=== PATIENT | male | born 1950 | race Asian ===

== ENCOUNTER 2021-07-22 11:19 | Inpatient (IN) | payer MEDICARE, OTHER ==
[2021-07-22] VITALS (17 sets, daily range): BP systolic 101–172; BP diastolic 31–55
[~2021-07-22] VITALS: Ht 175.3 cm; Wt 84.5 kg
[~2021-07-22 11:19] MED LIST: AMLO-258 PO; ATOR20TA86 PO; CARV25 PO; ERGO500013 PO; FURO20 PO; GLIP5 PO; HYDR50TA36 PO; INSLAN SQ; LEVO137T24 PO; LISI40TA9 PO; LORA-1000 PO; POTA8CAP20 PO; SERT25TA PO; SITA1TAB6 PO; TELM40 PO
[2021-07-22] MEDS ORDERED: SODIUM CHLORIDE 0.9% 1,000 ML IV ONE (12:15)
[2021-07-22 12:26] LABS: GLUCOSE,POINT OF CARE 179 MG/DL (70-110)
[2021-07-22 12:41] LABS: MONOCYTES # (AUTO) 0.6 K/uL (0.1-1.0); NEUTROPHILS # (AUTO) 7.6 K/uL (1.8-7.7)
[2021-07-22 12:45] LABS: BASOPHILS % (AUTO) 0.4 % (0.0-2.0); EOSINOPHILS % (AUTO) 1.4 % (1.0-6.0); LYMPHOCYTES # (AUTO) 1.1 K/uL (1.0-4.8); LYMPHOCYTES % (AUTO) 11.6 % (22.0-44.0); MEAN CORPUSCULAR HEMOGLOBIN 30.9 pg (26.0-34.0); MEAN CORPUSCULAR HGB CONC 35.1 G/dL (31.0-37.0); MEAN CORPUSCULAR VOLUME 88 fL (80-100); MONOCYTES % (AUTO) 6.4 % (2.0-9.0); NEUTROPHILS % (AUTO) 80.2 % (40.0-70.0); PLATELET COUNT (AUTO) 196 K/uL (150-450); RED BLOOD CELL COUNT(AUTO) 1.36 MIL/uL (4.50-5.90); RED CELL DISTRIBUTION WIDTH 15.8 % (11.5-14.5)
[2021-07-22 13:01] LABS: COVID AG,FIA SOURCE NASOPHARYNGEAL
[2021-07-22 13:02] LABS: CREATININE 6.38 mg/dL (0.60-1.30); POTASSIUM 5.5 mmol/L (3.5-5.1)
[2021-07-22 13:05] LABS: HEMOGLOBIN 4.2 g/dL (13.5-17.5)
[2021-07-22 13:06] LABS: HEMATOCRIT 11.9 % (41-53)
[2021-07-22] MEDS ORDERED: PANTOPRAZOLE SODIUM 40 MG/VIAL IVP ONE (13:15)
[2021-07-22 13:22] LABS: PROTHROMBIN TIME 11.1 SEC (9.4-11.6)
[2021-07-22 13:28] LABS: ALBUMIN 2.7 g/dL (3.4-5.0); BILIRUBIN,TOTAL 0.2 mg/dL (0.1-1.0); MAGNESIUM 2.3 mg/dL (1.80-2.40); THYROID STIMULATING HORMONE 1.25 uIU/mL (0.36-3.74); TOTAL PROTEIN, SERUM 5.9 g/dL (6.4-8.2)
[2021-07-22] MEDS: PANTOPRAZOLE SODIUM 80 MG in SODIUM CHLORIDE 0.9% 100 ML IV SCH ×3 (13:35→23:15)
[2021-07-22] MEDS ORDERED: DEXTROSE 50%-WATER 25 GM/50 ML SYRINGE IVP PRN (14:00)
[2021-07-22] MEDS ORDERED: ONDANSETRON HCL 4 MG/2 ML VIAL IVP PRN (14:00)
[2021-07-22] MEDS ORDERED: BISACODYL 10 MG RECTAL RECTAL SUPPOSITORY PR PRN (14:00)
[2021-07-22] MEDS ORDERED: ACETAMINOPHEN 325 MG TABLET PO PRN (14:00)
[2021-07-22] MEDS ORDERED: FUROSEMIDE 20 MG/2 ML VIAL IVP ONE (14:00)
[2021-07-22 14:22] LABS: % IRON SATURATION 10.3 % (30-44)
[2021-07-22] MEDS ORDERED: SODIUM CHLORIDE 0.9% 500 ML IV ONE (19:57)
[2021-07-22] MEDS: DEXTROSE 5%-0.45% SODIUM CHL 1,000 ML IV PRN (22:17)
[2021-07-22 23:06] LABS: HEMATOCRIT 24.2 % (41-53); HEMOGLOBIN 8.1 g/dL (13.5-17.5)
[2021-07-22] MEDS ORDERED: PANTOPRAZOLE SODIUM 80 MG in SODIUM CHLORIDE 0.9% 100 ML IV SCH (23:30)
[2021-07-23] VITALS: BP 157/45
[2021-07-23 04:00] VITALS: BP 168/45
[2021-07-23 05:10] LABS: BASOPHILS % (AUTO) 0.3 % (0.0-2.0); HEMOGLOBIN 7.8 g/dL (13.5-17.5); LYMPHOCYTES # (AUTO) 1.3 K/uL (1.0-4.8); LYMPHOCYTES % (AUTO) 12.1 % (22.0-44.0); MEAN CORPUSCULAR HEMOGLOBIN 30.4 pg (26.0-34.0); MEAN CORPUSCULAR HGB CONC 35.4 G/dL (31.0-37.0); MEAN CORPUSCULAR VOLUME 86 fL (80-100); MONOCYTES # (AUTO) 0.9 K/uL (0.1-1.0); MONOCYTES % (AUTO) 8.1 % (2.0-9.0); NEUTROPHILS # (AUTO) 8.6 K/uL (1.8-7.7); NEUTROPHILS % (AUTO) 77.5 % (40.0-70.0); PLATELET COUNT (AUTO) 174 K/uL (150-450); RED BLOOD CELL COUNT(AUTO) 2.56 MIL/uL (4.50-5.90); RED CELL DISTRIBUTION WIDTH 16.3 % (11.5-14.5)
[2021-07-23 05:20] LABS: CREATININE 6.23 mg/dL (0.60-1.30); POTASSIUM 5.2 mmol/L (3.5-5.1)
[2021-07-23 08:00] VITALS: BP 164/47
[2021-07-23] MEDS ORDERED: FUROSEMIDE 20 MG/2 ML VIAL IVP SCH (09:00)
[2021-07-23 09:11] LABS: GLUCOMETER DEV NAME(LOC) AHU.; GLUCOSE,POINT OF CARE 110 MG/DL (70-110)
[2021-07-23] MEDS: PANTOPRAZOLE SODIUM 80 MG in SODIUM CHLORIDE 0.9% 100 ML IV SCH (10:24)
[2021-07-23 12:00] VITALS: BP 164/47
[2021-07-23] MEDS ORDERED: PROPOFOL 1% 20 ML VIAL IVP ONE (12:00)
[2021-07-23 12:46] LABS: GLUCOMETER DEV NAME(LOC) AHU.; GLUCOSE,POINT OF CARE 100 MG/DL (70-110)
[2021-07-23 13:41] LABS: GLUCOMETER DEV NAME(LOC) AHU.; GLUCOSE,POINT OF CARE 107 MG/DL (70-110)
[2021-07-23] MEDS ORDERED: EPOETIN ALFA 10,000 UNITS/ML VIAL SQ ONE (15:30)
[2021-07-23 16:00] VITALS: BP 136/37
[2021-07-23] MEDS: DEXTROSE 5%-0.45% SODIUM CHL 1,000 ML IV PRN (16:53)
[2021-07-23 18:46] LABS: GLUCOMETER DEV NAME(LOC) AHU.; GLUCOSE,POINT OF CARE 176 MG/DL (70-110)
[2021-07-23] MEDS ORDERED: PANTOPRAZOLE SODIUM 40 MG/VIAL IVP SCH (21:00)
[2021-07-23] MEDS ORDERED: PANTOPRAZOLE SODIUM 40 MG DR TABLET PO SCH (21:00)
[2021-07-23] MEDS: PANTOPRAZOLE SODIUM 40 MG DR TABLET PO SCH (21:23)
[2021-07-23] MEDS: INSULIN LISPRO 100 UNITS/ML SQ PRN (21:43)
[2021-07-23 21:51] LABS: GLUCOSE,POINT OF CARE 101 MG/DL (70-110)
[2021-07-23 21:51] LABS: GLUCOSE,POINT OF CARE 132 MG/DL (70-110)
[2021-07-23 21:51] LABS: GLUCOSE,POINT OF CARE 150 MG/DL (70-110)
[2021-07-23 22:15] VITALS: BP 167/73
[2021-07-23 22:46] LABS: GLUCOMETER DEV NAME(LOC) AHU.; GLUCOSE,POINT OF CARE 159 MG/DL (70-110)
[2021-07-24] VITALS (7 sets, daily range): BP systolic 123–159; BP diastolic 54–73
[2021-07-24 02:29] LABS: APPEARANCE,URINE CLEAR (CLEAR); BILIRUBIN,URINE NEGATIVE (NEGATIVE); GLUCOSE, URINE (UA) NEGATIVE (NEGATIVE); KETONES,URINE NEGATIVE (NEGATIVE); LEUKOCYTE ESTERASE ,URINE NEGATIVE (NEGATIVE); NITRATE,URINE NEGATIVE (NEGATIVE); OCCULT BLOOD,URINE TRACE (NEGATIVE); PROTEIN,URINE SEE CONFIRM (NEGATIVE); UROBILINOGEN,URINE 0.2 mg/dL (<=1.0)
[2021-07-24 02:41] LABS: BACTERIA,URINE None Seen /HPF (None Seen); RBC,URINE 0-2 /HPF (0-2); SULFOSALICYLIC ACID,URINE 1+ (Negative); WBC,URINE None Seen /HPF (0-5)
[2021-07-24] MEDS: INSULIN LISPRO 100 UNITS/ML SQ PRN ×3 (05:47→21:07)
[2021-07-24 06:06] LABS: H. PYLORI ANTIBODY IGG 4.87 (0.00-0.79)
[2021-07-24 06:41] LABS: GLUCOMETER DEV NAME(LOC) 5N.3; GLUCOSE,POINT OF CARE 146 MG/DL (70-110)
[2021-07-24 06:41] LABS: GLUCOMETER DEV NAME(LOC) 5N.3; GLUCOSE,POINT OF CARE 71 MG/DL (70-110)
[2021-07-24 08:07] LABS: CALCIUM, TOTAL 7.3 mg/dL (8.8-10.5); CREATININE 5.8 mg/dL (0.60-1.30); MAGNESIUM 2.2 mg/dL (1.80-2.40); PHOSPHORUS 6.2 mg/dL (2.5-4.9); POTASSIUM 4.2 mmol/L (3.5-5.1)
[2021-07-24] MEDS: FUROSEMIDE 20 MG/2 ML VIAL IVP SCH (09:29)
[2021-07-24] MEDS: PANTOPRAZOLE SODIUM 40 MG DR TABLET PO SCH ×2 (09:29→21:06)
[2021-07-24] MEDS ORDERED: CALCIUM GLUCONATE 1,000 MG in DEXTROSE 5%-WATER 50 ML IV ONE (10:30)
[2021-07-24] MEDS: CALCITRIOL 0.25 MCG CAPSULE PO SCH (11:36)
[2021-07-24] MEDS: CHOLECALCIFEROL (VIT D3) 2,000 UNITS [50 MCG] TABLET PO SCH (11:36)
[2021-07-24] MEDS: SODIUM BICARBONATE 650 MG TABLET PO SCH ×2 (11:36→21:31)
[2021-07-24] MEDS ORDERED: SODIUM CHLORIDE 0.9% 250 ML IV ONE (11:44)
[2021-07-24 13:17] LABS: PATHOLOGY REVIEW, DIFF YES
[2021-07-24 17:06] LABS: GLUCOMETER DEV NAME(LOC) 5S.2B; GLUCOSE,POINT OF CARE 118 MG/DL (70-110)
[2021-07-24 19:31] LABS: GLUCOMETER DEV NAME(LOC) 5N.3; GLUCOSE,POINT OF CARE 141 MG/DL (70-110)
[2021-07-25 04:35] VITALS: BP 134/66
[2021-07-25 05:21] LABS: GLUCOMETER DEV NAME(LOC) 5S.1B; GLUCOSE,POINT OF CARE 160 MG/DL (70-110)
[2021-07-25 06:26] LABS: GLUCOMETER DEV NAME(LOC) 5N.3; GLUCOSE,POINT OF CARE 117 MG/DL (70-110)
[2021-07-25] MEDS: SODIUM BICARBONATE 650 MG TABLET PO SCH (08:23)
[2021-07-25] MEDS: CHOLECALCIFEROL (VIT D3) 2,000 UNITS [50 MCG] TABLET PO SCH (08:23)
[2021-07-25] MEDS: CALCITRIOL 0.25 MCG CAPSULE PO SCH (08:23)
[2021-07-25] MEDS: PANTOPRAZOLE SODIUM 40 MG DR TABLET PO SCH (08:23)
[2021-07-25] MEDS: FUROSEMIDE 20 MG/2 ML VIAL IVP SCH (08:23)
[2021-07-25 08:30] LABS: BASOPHILS % (AUTO) 0.5 % (0.0-2.0); EOSINOPHILS % (AUTO) 4.4 % (1.0-6.0); HEMATOCRIT 27.8 % (41-53); HEMOGLOBIN 9.3 g/dL (13.5-17.5); LYMPHOCYTES # (AUTO) 1.5 K/uL (1.0-4.8); MEAN CORPUSCULAR HEMOGLOBIN 29.5 pg (26.0-34.0); MEAN CORPUSCULAR HGB CONC 33.5 G/dL (31.0-37.0); MEAN CORPUSCULAR VOLUME 88 fL (80-100); MONOCYTES % (AUTO) 8.9 % (2.0-9.0); NEUTROPHILS # (AUTO) 8.2 K/uL (1.8-7.7); NEUTROPHILS % (AUTO) 73.2 % (40.0-70.0); PLATELET COUNT (AUTO) 210 K/uL (150-450); RED BLOOD CELL COUNT(AUTO) 3.16 MIL/uL (4.50-5.90); RED CELL DISTRIBUTION WIDTH 16.6 % (11.5-14.5)
[2021-07-25 08:43] LABS: POTASSIUM 3.9 mmol/L (3.5-5.1)
[2021-07-25 08:44] LABS: CALCIUM, TOTAL 7.8 mg/dL (8.8-10.5); CREATININE 5.33 mg/dL (0.60-1.30); MAGNESIUM 2.1 mg/dL (1.80-2.40); PHOSPHORUS 4.9 mg/dL (2.5-4.9)
[2021-07-25 08:48] VITALS: BP 136/69
[2021-07-25] MEDS ORDERED: EPOETIN ALFA 10,000 UNITS/ML VIAL SQ SCH (09:00)
[2021-07-25 11:46] LABS: GLUCOMETER DEV NAME(LOC) 5N.3; GLUCOSE,POINT OF CARE 250 MG/DL (70-110)
[2021-07-25 11:52] VITALS: BP 152/63
[2021-07-25] MEDS: INSULIN LISPRO 100 UNITS/ML SQ PRN (11:52)
[2021-07-27 12:06] LABS: H. PYLORI ANTIBODY IGM <9.0 units (0.0-8.9)
[2021-07-27 16:07] LABS: H. PYLORI ANTIBODY IGA >35.0 units (0.0-8.9)
== END 2021-07-25 14:40 | disposition home or self-care (01) | DRG 378 ==
LOC: EMS 11:19 → ICUN 14:22 → 5S 07-23 22:05
PROVIDERS: ADMIT Internal Medicine; ATTEND Internal Medicine
PROC: 30233N1 Transfusion of Nonautologous Red Blood Cells into Peripheral Vein, Percutaneous Approach (ICD-10-PCS; 2021-07-22)
PROC: 0DB68ZX Excision of Stomach, Via Natural or Artificial Opening Endoscopic, Diagnostic (ICD-10-PCS; principal; 2021-07-23 15:00)
DX: K26.4 Chronic or unspecified duodenal ulcer with hemorrhage (principal); N17.9 Acute kidney failure, unspecified; D62 Acute posthemorrhagic anemia; E87.2 Acidosis; N25.81 Secondary hyperparathyroidism of renal origin; N18.4 Chronic kidney disease, stage 4 (severe); E03.9 Hypothyroidism, unspecified; E78.5 Hyperlipidemia, unspecified; D63.1 Anemia in chronic kidney disease; E11.22 Type 2 diabetes mellitus with diabetic chronic kidney disease; Z20.822 Contact with and (suspected) exposure to COVID-19; E11.319 Type 2 diabetes mellitus with unspecified diabetic retinopathy without macular edema; E87.5 Hyperkalemia; E11.21 Type 2 diabetes mellitus with diabetic nephropathy; E78.00 Pure hypercholesterolemia, unspecified; I12.9 Hypertensive chronic kidney disease with stage 1 through stage 4 chronic kidney disease, or unspecified chronic kidney disease; Z82.49 Family history of ischemic heart disease and other diseases of the circulatory system; Z83.3 Family history of diabetes mellitus
CPT/HCPCS: 71045; 80048; 80053; 81001; 81002; 82271; 82550; 82962; 83540; 83550; 83605; 83735; 83880; 84100; 84443; 84484; 85014; 85018; 85025; 85610; 85730; 86677; 86850; 86900; 86901; 86923; 87081; 88305; 93005; 93306; 93970; 99291; C9113; G0378; J0610; J0885; J1940; J2704; J7040; J7050; J7060; P9016; 36415-L1; 36415-TC

== ENCOUNTER 2021-11-08 01:04 | Inpatient (IN) | payer MEDICARE, OTHER ==
[~2021-11-08] VITALS: Ht 170.2 cm; Wt 80.1 kg
[~2021-11-08 01:04] MED LIST changes: -AMLO-258 PO; -CARV25 PO; -GLIP5 PO; -HYDR50TA36 PO; -INSLAN SQ; -LISI40TA9 PO; -LORA-1000 PO; -POTA8CAP20 PO; -SERT25TA PO; -SITA1TAB6 PO; -TELM40 PO
[2021-11-08 02:00] LABS: BASOPHILS % (AUTO) 0.2 % (0.0-2.0); EOSINOPHILS % (AUTO) 7.6 % (1.0-6.0); HEMATOCRIT 22.4 % (41-53); HEMOGLOBIN 7.4 g/dL (13.5-17.5); LYMPHOCYTES # (AUTO) 0.9 K/uL (1.0-4.8); LYMPHOCYTES % (AUTO) 9.7 % (22.0-44.0); MEAN CORPUSCULAR HEMOGLOBIN 28.5 pg (26.0-34.0); MEAN CORPUSCULAR VOLUME 86 fL (80-100); MONOCYTES # (AUTO) 0.6 K/uL (0.1-1.0); MONOCYTES % (AUTO) 6.4 % (2.0-9.0); NEUTROPHILS # (AUTO) 7.4 K/uL (1.8-7.7); NEUTROPHILS % (AUTO) 76.1 % (40.0-70.0); PLATELET COUNT (AUTO) 206 K/uL (150-450); RED BLOOD CELL COUNT(AUTO) 2.59 MIL/uL (4.50-5.90); RED CELL DISTRIBUTION WIDTH 15.4 % (11.5-14.5)
[2021-11-08 02:08] LABS: ANION GAP 18 mmol/L (8-16); CARBON DIOXIDE 20 mmol/L (22-29); CHLORIDE 99 mmol/L (98-107); GLOMERULAR FILTR. RATE CALC 3 mL/min (>60); GLUCOSE,RANDOM 175 mg/dL (70-110); POTASSIUM 3.6 mmol/L (3.5-5.1); SODIUM SERUM 137 mmol/L (136-145)
[2021-11-08 02:14] LABS: ALANINE AMINOTRANSFERASE 18 U/L (12-78); ALBUMIN 2.6 g/dL (3.4-5.0); ALKALINE PHOSPHATASE 84 U/L (46-116); ASPARTATE AMINOTRANSFERASE 23 U/L (15-37); BILIRUBIN,TOTAL 0.3 mg/dL (0.1-1.0); CREATINE KINASE, TOTAL ONLY 832 U/L (39-308); TOTAL PROTEIN, SERUM 6.9 g/dL (6.4-8.2)
[2021-11-08 02:16] LABS: INR 1.1 (0.9-1.1); PROTHROMBIN TIME 11.4 SEC (9.4-11.6)
[2021-11-08 02:17] LABS: B-TYPE NATRIURETIC PEPTIDE 3010 pg/mL (0-100)
[2021-11-08 02:18] LABS: D-DIMER 6.22 mg/L FEU (0.00-0.50)
[2021-11-08 02:23] LABS: CALCIUM, TOTAL < 5.0 mg/dL (8.8-10.5); UREA NITROGEN, BLOOD 109 mg/dL (7-18)
[2021-11-08] MEDS ORDERED: FUROSEMIDE 40 MG/4 ML VIAL IVP ONE ×2 (02:30→11:15)
[2021-11-08] MEDS ORDERED: HydrALAZINE HCL 20 MG/ML VIAL IVP ONE (06:30)
[2021-11-08 07:56] LABS: GLUCOMETER DEV NAME(LOC) ERT.5; GLUCOSE,POINT OF CARE 121 MG/DL (70-110)
[2021-11-08 10:09] LABS: COVID AG,FIA SOURCE NASAL SWAB
[2021-11-08] MEDS ORDERED: ALBUTEROL SULFATE 2.5 MG/0.5 ML NEB SOLUTION NEB PRN (11:15)
[2021-11-08 11:25] VITALS: BP 199/111
[2021-11-08 12:58] VITALS: BP 180/89
[2021-11-08 14:36] LABS: GLUCOMETER DEV NAME(LOC) 5S.2B; GLUCOSE,POINT OF CARE 134 MG/DL (70-110)
[2021-11-08 15:38] VITALS: BP 148/83
[2021-11-08 18:56] LABS: GLUCOMETER DEV NAME(LOC) 5S.2B; GLUCOSE,POINT OF CARE 162 MG/DL (70-110)
[2021-11-08 20:02] VITALS: BP 156/75
[2021-11-08] MEDS ORDERED: DEXTROSE 50%-WATER 25 GM/50 ML SYRINGE IVP PRN (20:45)
[2021-11-08] MEDS: INSULIN LISPRO 100 UNITS/ML SQ PRN (20:48)
[2021-11-08] MEDS ORDERED: INSULIN GLARGINE,HUM.REC.ANLOG 100 UNITS/ML SQ SCH (21:00)
[2021-11-08 21:06] LABS: GLUCOMETER DEV NAME(LOC) 5N.3; GLUCOSE,POINT OF CARE 185 MG/DL (70-110)
[2021-11-09] VITALS (7 sets, daily range): BP systolic 135–191; BP diastolic 62–103
[2021-11-09] MEDS ORDERED: ONDANSETRON HCL 4 MG/2 ML VIAL IVP PRN (01:00)
[2021-11-09] MEDS ORDERED: ZOLPIDEM TARTRATE 5 MG TABLET PO PRN (01:00)
[2021-11-09] MEDS ORDERED: MORPHINE SULFATE 2 MG/ML SYRINGE IVP PRN (01:00)
[2021-11-09] MEDS ORDERED: HYDROCODONE/ACETAMINOPHEN 5-325 MG TABLET PO PRN (01:00)
[2021-11-09] MEDS ORDERED: ACETAMINOPHEN 325 MG TABLET PO PRN (01:00)
[2021-11-09] MEDS ORDERED: ALBUTEROL SULFATE 2.5 MG/0.5 ML NEB SOLUTION NEB PRN (01:00)
[2021-11-09] MEDS ORDERED: MAGNESIUM HYDROXIDE SUSPENSION 30 ML UDCUP PO PRN (01:00)
[2021-11-09] MEDS ORDERED: IPRATROPIUM BROMIDE 0.5 MG/2.5 ML NEB SOLUTION NEB PRN (01:00)
[2021-11-09] MEDS ORDERED: BISACODYL 10 MG RECTAL RECTAL SUPPOSITORY PR PRN (01:00)
[2021-11-09] MEDS: DOCUSATE SODIUM 100 MG CAPSULE PO SCH ×2 (09:00→20:49)
[2021-11-09 09:30] LABS: BASOPHILS % (AUTO) 0.2 % (0.0-2.0); HEMATOCRIT 24.2 % (41-53); HEMOGLOBIN 8.1 g/dL (13.5-17.5); LYMPHOCYTES # (AUTO) 0.8 K/uL (1.0-4.8); LYMPHOCYTES % (AUTO) 8.5 % (22.0-44.0); MEAN CORPUSCULAR HEMOGLOBIN 28.9 pg (26.0-34.0); MEAN CORPUSCULAR HGB CONC 33.2 G/dL (31.0-37.0); MEAN CORPUSCULAR VOLUME 87 fL (80-100); MONOCYTES # (AUTO) 0.6 K/uL (0.1-1.0); MONOCYTES % (AUTO) 6.2 % (2.0-9.0); NEUTROPHILS # (AUTO) 7.3 K/uL (1.8-7.7); NEUTROPHILS % (AUTO) 77.1 % (40.0-70.0); PLATELET COUNT (AUTO) 200 K/uL (150-450); RED BLOOD CELL COUNT(AUTO) 2.79 MIL/uL (4.50-5.90); RED CELL DISTRIBUTION WIDTH 15.5 % (11.5-14.5)
[2021-11-09 09:36] LABS: ANION GAP 18 mmol/L (8-16); CARBON DIOXIDE 21 mmol/L (22-29); CHLORIDE 100 mmol/L (98-107); GLOMERULAR FILTR. RATE CALC 3 mL/min (>60); GLUCOSE,RANDOM 163 mg/dL (70-110); POTASSIUM 3.8 mmol/L (3.5-5.1); SODIUM SERUM 139 mmol/L (136-145)
[2021-11-09] MEDS: PANTOPRAZOLE SODIUM 40 MG/VIAL IVP SCH (09:39)
[2021-11-09] MEDS: HEPARIN SODIUM,PORCINE 5,000 UNITS/ML VIAL SQ SCH ×3 (09:39→23:57)
[2021-11-09] MEDS: FUROSEMIDE 40 MG/4 ML VIAL IVP SCH ×2 (09:39→20:49)
[2021-11-09 10:04] LABS: UREA NITROGEN, BLOOD 105 mg/dL (7-18)
[2021-11-09 10:05] LABS: CALCIUM, TOTAL < 5.0 mg/dL (8.8-10.5)
[2021-11-09 12:11] LABS: GLUCOMETER DEV NAME(LOC) 5N.1C; GLUCOSE,POINT OF CARE 71 MG/DL (70-110)
[2021-11-09 12:11] LABS: GLUCOMETER DEV NAME(LOC) 5N.1C; GLUCOSE,POINT OF CARE 124 MG/DL (70-110)
[2021-11-09] MEDS ORDERED: EPOETIN ALFA 10,000 UNITS/ML VIAL SQ ONE (18:15)
[2021-11-09] MEDS: CALCITRIOL 1 MCG/ML AMP IVP SCH (18:34)
[2021-11-09] MEDS: CALCIUM GLUCONATE 100 MG/ML 10 ML IVP SCH ×3 (18:34→22:02)
[2021-11-09 20:11] LABS: GLUCOMETER DEV NAME(LOC) 5S.1B; GLUCOSE,POINT OF CARE 90 MG/DL (70-110)
[2021-11-09] MEDS: AmLODIPine BESYLATE 10 MG TABLET PO SCH (20:48)
[2021-11-09] MEDS: CloNIDine HCL 0.1 MG TABLET PO PRN (20:49)
[2021-11-09] MEDS: INSULIN GLARGINE,HUM.REC.ANLOG 100 UNITS/ML SQ SCH (20:50)
[2021-11-09] MEDS: INSULIN LISPRO 100 UNITS/ML SQ PRN (20:51)
[2021-11-09 21:02] LABS: GLUCOMETER DEV NAME(LOC) 5N.1C; GLUCOSE,POINT OF CARE 148 MG/DL (70-110)
[2021-11-09] MEDS ORDERED: CloNIDine HCL 0.1 MG TABLET PO ONE (22:30)
[2021-11-10] VITALS (7 sets, daily range): BP systolic 122–164; BP diastolic 62–81
[2021-11-10 07:41] LABS: CREATININE 14.07 mg/dL (0.60-1.30); POTASSIUM 3.9 mmol/L (3.5-5.1)
[2021-11-10 07:43] LABS: CALCIUM, TOTAL 5.7 mg/dL (8.8-10.5)
[2021-11-10 08:00] LABS: PHOSPHORUS 9.8 mg/dL (2.5-4.9)
[2021-11-10] MEDS: AmLODIPine BESYLATE 10 MG TABLET PO SCH (08:37)
[2021-11-10] MEDS: FUROSEMIDE 40 MG/4 ML VIAL IVP SCH ×2 (08:37→20:29)
[2021-11-10] MEDS: DOCUSATE SODIUM 100 MG CAPSULE PO SCH ×2 (08:38→20:30)
[2021-11-10] MEDS: HEPARIN SODIUM,PORCINE 5,000 UNITS/ML VIAL SQ SCH ×2 (08:38→15:46)
[2021-11-10] MEDS: CALCITRIOL 1 MCG/ML AMP IVP SCH (08:38)
[2021-11-10] MEDS: PANTOPRAZOLE SODIUM 40 MG/VIAL IVP SCH (10:18)
[2021-11-10] MEDS: CALCIUM GLUCONATE 1,000 MG in DEXTROSE 5%-WATER 50 ML IV SCH ×3 (10:56→13:00)
[2021-11-10] MEDS: CALCIUM ACETATE 667 MG CAPSULE PO SCH ×2 (11:43→17:20)
[2021-11-10] MEDS: CALCIUM CARBONATE 500 MG CHEWABLE TABLET CHEW SCH ×3 (11:43→20:30)
[2021-11-10] MEDS: INSULIN LISPRO 100 UNITS/ML SQ PRN (18:01)
[2021-11-10] MEDS: INSULIN GLARGINE,HUM.REC.ANLOG 100 UNITS/ML SQ SCH (20:29)
[2021-11-10 21:42] LABS: GLUCOMETER DEV NAME(LOC) 5S.2B; GLUCOSE,POINT OF CARE 120 MG/DL (70-110)
[2021-11-10 21:42] LABS: GLUCOMETER DEV NAME(LOC) 5S.2B; GLUCOSE,POINT OF CARE 80 MG/DL (70-110)
[2021-11-10 21:42] LABS: GLUCOMETER DEV NAME(LOC) 5S.2B; GLUCOSE,POINT OF CARE 194 MG/DL (70-110)
[2021-11-11] VITALS (8 sets, daily range): BP systolic 133–172; BP diastolic 71–99
[2021-11-11 00:07] LABS: GLUCOMETER DEV NAME(LOC) 5N.1C; GLUCOSE,POINT OF CARE 160 MG/DL (70-110)
[2021-11-11] MEDS: HEPARIN SODIUM,PORCINE 5,000 UNITS/ML VIAL SQ SCH ×4 (00:10→23:50)
[2021-11-11] MEDS: CALCIUM CARBONATE 500 MG CHEWABLE TABLET CHEW SCH ×4 (06:30→20:48)
[2021-11-11 07:06] LABS: GLUCOMETER DEV NAME(LOC) 5N.1C; GLUCOSE,POINT OF CARE 99 MG/DL (70-110)
[2021-11-11] MEDS: CALCIUM ACETATE 667 MG CAPSULE PO SCH ×3 (08:00→18:20)
[2021-11-11] MEDS: FUROSEMIDE 40 MG/4 ML VIAL IVP SCH ×2 (09:00→20:49)
[2021-11-11] MEDS: DOCUSATE SODIUM 100 MG CAPSULE PO SCH ×3 (09:00→21:00)
[2021-11-11] MEDS: CALCITRIOL 1 MCG/ML AMP IVP SCH (09:00)
[2021-11-11] MEDS: AmLODIPine BESYLATE 10 MG TABLET PO SCH (09:00)
[2021-11-11] MEDS: EPOETIN ALFA 10,000 UNITS/ML 2 ML VIAL SQ SCH (09:00)
[2021-11-11] MEDS: PANTOPRAZOLE SODIUM 40 MG/VIAL IVP SCH (09:00)
[2021-11-11] MEDS ORDERED: HEPARIN SODIUM 1000 UNITS/NS 0 ML ONE (09:25)
[2021-11-11] MEDS ORDERED: FentaNYL CITRATE PF 100 MCG/2 ML VIAL ONE (09:25)
[2021-11-11] MEDS ORDERED: LIDOCAINE/PF 1% 30 ML VIAL ONE (09:26)
[2021-11-11] MEDS ORDERED: MIDAZOLAM HCL 2 MG/2 ML VIAL ONE (09:26)
[2021-11-11] MEDS ORDERED: SODIUM BICARBONATE 50 MEQ/50 ML VIAL ONE (09:26)
[2021-11-11] MEDS ORDERED: HEPARIN SODIUM,PORCINE 1,000 UNITS/ML 10 ML VIAL ONE (09:28)
[2021-11-11] MEDS ORDERED: SODIUM CHLORIDE 0.9% 500 ML IV ONE (09:45)
[2021-11-11] MEDS ORDERED: LIDOCAINE 1% 30 ML/SOD BICARB 8.4% 4 ML SQ ONE (09:45)
[2021-11-11] MEDS ORDERED: CeFAZolin 1 GM/DEXTROSE 50 ML IV ONE (09:45)
[2021-11-11] MEDS ORDERED: MIDAZOLAM HCL 2 MG/2 ML VIAL IVP ONE (09:45)
[2021-11-11] MEDS ORDERED: FentaNYL CITRATE PF 100 MCG/2 ML VIAL IVP ONE (09:45)
[2021-11-11] MEDS ORDERED: HEPARIN SODIUM,PORCINE 1,000 UNITS/ML VIAL IVP ONE (12:00)
[2021-11-11 13:31] LABS: GLUCOMETER DEV NAME(LOC) 5S.2B; GLUCOSE,POINT OF CARE 103 MG/DL (70-110)
[2021-11-11 20:36] LABS: GLUCOMETER DEV NAME(LOC) 5S.2B; GLUCOSE,POINT OF CARE 135 MG/DL (70-110)
[2021-11-11] MEDS: INSULIN LISPRO 100 UNITS/ML SQ PRN (20:53)
[2021-11-11] MEDS: INSULIN GLARGINE,HUM.REC.ANLOG 100 UNITS/ML SQ SCH (20:54)
[2021-11-12] VITALS (15 sets, daily range): BP systolic 128–179; BP diastolic 73–89
[2021-11-12 03:11] LABS: GLUCOMETER DEV NAME(LOC) 5N.1C; GLUCOSE,POINT OF CARE 200 MG/DL (70-110)
[2021-11-12 07:21] LABS: GLUCOMETER DEV NAME(LOC) 5N.1C; GLUCOSE,POINT OF CARE 99 MG/DL (70-110)
[2021-11-12] MEDS: CALCIUM CARBONATE 500 MG CHEWABLE TABLET CHEW SCH ×4 (07:23→21:32)
[2021-11-12] MEDS: VITAMIN B COMP/VIT C/FOLIC ACID CAPSULE PO SCH (07:55)
[2021-11-12] MEDS: CALCITRIOL 1 MCG/ML AMP IVP SCH (07:56)
[2021-11-12] MEDS: FUROSEMIDE 40 MG/4 ML VIAL IVP SCH ×2 (07:56→21:31)
[2021-11-12] MEDS: CALCIUM ACETATE 667 MG CAPSULE PO SCH ×3 (07:56→18:18)
[2021-11-12] MEDS: PANTOPRAZOLE SODIUM 40 MG/VIAL IVP SCH (07:56)
[2021-11-12] MEDS: DOCUSATE SODIUM 100 MG CAPSULE PO SCH ×2 (07:57→21:00)
[2021-11-12] MEDS: HEPARIN SODIUM,PORCINE 5,000 UNITS/ML VIAL SQ SCH ×2 (07:57→16:00)
[2021-11-12] MEDS: AmLODIPine BESYLATE 10 MG TABLET PO SCH (11:20)
[2021-11-12 13:41] LABS: GLUCOMETER DEV NAME(LOC) 5N.1C; GLUCOSE,POINT OF CARE 168 MG/DL (70-110)
[2021-11-12] MEDS: CloNIDine HCL 0.1 MG TABLET PO PRN (14:03)
[2021-11-12 16:02] LABS: CALCIUM, TOTAL 7.5 mg/dL (8.8-10.5); CREATININE 5.6 mg/dL (0.60-1.30); PHOSPHORUS 2.2 mg/dL (2.5-4.9)
[2021-11-12] MEDS ORDERED: POTASSIUM CHLORIDE 20 MEQ ER TABLET PO ONE (16:45)
[2021-11-12] MEDS ORDERED: HEPARIN SODIUM,PORCINE 1,000 UNITS/ML VIAL IVCATH ONE ×2 (18:00)
[2021-11-12] MEDS ORDERED: HEPARIN SODIUM,PORCINE 1,000 UNITS/ML VIAL IVP ONE (18:57)
[2021-11-12 19:11] LABS: GLUCOMETER DEV NAME(LOC) 5N.1C; GLUCOSE,POINT OF CARE 148 MG/DL (70-110)
[2021-11-12] MEDS: INSULIN GLARGINE,HUM.REC.ANLOG 100 UNITS/ML SQ SCH (21:00)
[2021-11-13] VITALS (16 sets, daily range): BP systolic 116–169; BP diastolic 51–92
[2021-11-13 03:51] LABS: GLUCOMETER DEV NAME(LOC) 5S.2B; GLUCOSE,POINT OF CARE 199 MG/DL (70-110)
[2021-11-13] MEDS ORDERED: SODIUM CHLORIDE 0.9% 1,000 ML ONE (06:08)
[2021-11-13] MEDS ORDERED: SODIUM CHLORIDE 0.9% 1,000 ML IV SCH (06:15)
[2021-11-13] MEDS: CALCIUM CARBONATE 500 MG CHEWABLE TABLET CHEW SCH ×4 (06:30→21:44)
[2021-11-13] MEDS ORDERED: HEPARIN SODIUM,PORCINE 5,000 UNITS/ML VIAL ONE (07:01)
[2021-11-13] MEDS ORDERED: LIDOCAINE/PF 1% 30 ML VIAL ONE (07:01)
[2021-11-13] MEDS ORDERED: VANCOMYCIN HCL 1 GM/VIAL ONE (07:01)
[2021-11-13] MEDS ORDERED: SODIUM CHLORIDE 0.9% 0 ML IV ONE (07:01)
[2021-11-13] MEDS ORDERED: PROPOFOL 1000 MG/ISO-OSM 100 ML ONE (07:31)
[2021-11-13 08:03] LABS: CALCIUM, TOTAL 7.1 mg/dL (8.8-10.5); CREATININE 7.53 mg/dL (0.60-1.30); POTASSIUM 3.6 mmol/L (3.5-5.1)
[2021-11-13 08:11] LABS: GLUCOMETER DEV NAME(LOC) SDS.; GLUCOSE,POINT OF CARE 102 MG/DL (70-110)
[2021-11-13] MEDS: HEPARIN SODIUM,PORCINE 5,000 UNITS/ML VIAL SQ SCH ×3 (10:14→16:00)
[2021-11-13] MEDS: PANTOPRAZOLE SODIUM 40 MG/VIAL IVP SCH (10:15)
[2021-11-13] MEDS: FUROSEMIDE 40 MG/4 ML VIAL IVP SCH ×2 (10:15→21:45)
[2021-11-13] MEDS: CALCITRIOL 1 MCG/ML AMP IVP SCH (10:15)
[2021-11-13] MEDS: VITAMIN B COMP/VIT C/FOLIC ACID CAPSULE PO SCH (10:15)
[2021-11-13] MEDS: DOCUSATE SODIUM 100 MG CAPSULE PO SCH ×2 (10:15→21:45)
[2021-11-13] MEDS: CALCIUM ACETATE 667 MG CAPSULE PO SCH ×3 (10:16→21:44)
[2021-11-13] MEDS: AmLODIPine BESYLATE 10 MG TABLET PO SCH (10:16)
[2021-11-13] MEDS ORDERED: LIDOCAINE/PF 2% 5 ML VIAL IM ONE (12:00)
[2021-11-13] MEDS ORDERED: MIDAZOLAM HCL 2 MG/2 ML VIAL IVP ONE (12:00)
[2021-11-13] MEDS ORDERED: FentaNYL CITRATE PF 100 MCG/2 ML VIAL IVP ONE (12:00)
[2021-11-13] MEDS ORDERED: HEPARIN SODIUM,PORCINE 1,000 UNITS/ML VIAL IVP ONE (12:00)
[2021-11-13] MEDS: EPOETIN ALFA 10,000 UNITS/ML 2 ML VIAL SQ SCH (12:37)
[2021-11-13] MEDS ORDERED: HEPARIN SODIUM,PORCINE 1,000 UNITS/ML VIAL IVCATH ONE ×2 (18:00)
[2021-11-13] MEDS: INSULIN GLARGINE,HUM.REC.ANLOG 100 UNITS/ML SQ SCH (21:00)
[2021-11-14] MEDS: HEPARIN SODIUM,PORCINE 5,000 UNITS/ML VIAL SQ SCH ×3 (00:44→16:00)
[2021-11-14 01:11] LABS: GLUCOMETER DEV NAME(LOC) 5N.1C; GLUCOSE,POINT OF CARE 196 MG/DL (70-110)
[2021-11-14 01:11] LABS: GLUCOMETER DEV NAME(LOC) 5N.1C; GLUCOSE,POINT OF CARE 118 MG/DL (70-110)
[2021-11-14 01:11] LABS: GLUCOMETER DEV NAME(LOC) 5N.1C; GLUCOSE,POINT OF CARE 133 MG/DL (70-110)
[2021-11-14 05:19] VITALS: BP 145/71
[2021-11-14] MEDS: INSULIN LISPRO 100 UNITS/ML SQ PRN ×2 (06:03→12:09)
[2021-11-14 06:12] LABS: CREATININE 4.81 mg/dL (0.60-1.30)
[2021-11-14] MEDS: CALCIUM CARBONATE 500 MG CHEWABLE TABLET CHEW SCH ×4 (06:53→20:45)
[2021-11-14 07:47] VITALS: BP 141/76
[2021-11-14] MEDS: VITAMIN B COMP/VIT C/FOLIC ACID CAPSULE PO SCH (08:10)
[2021-11-14] MEDS: AmLODIPine BESYLATE 10 MG TABLET PO SCH (08:10)
[2021-11-14] MEDS: CALCIUM ACETATE 667 MG CAPSULE PO SCH ×3 (08:10→17:59)
[2021-11-14] MEDS: FUROSEMIDE 40 MG/4 ML VIAL IVP SCH ×2 (08:11→20:44)
[2021-11-14] MEDS: DOCUSATE SODIUM 100 MG CAPSULE PO SCH ×2 (08:12→20:51)
[2021-11-14] MEDS: PANTOPRAZOLE SODIUM 40 MG/VIAL IVP SCH (08:12)
[2021-11-14] MEDS: CALCITRIOL 1 MCG/ML AMP IVP SCH (09:49)
[2021-11-14 12:00] VITALS: BP 151/60
[2021-11-14 16:08] VITALS: BP 147/64
[2021-11-14 19:11] VITALS: BP 161/82
[2021-11-14] MEDS: INSULIN GLARGINE,HUM.REC.ANLOG 100 UNITS/ML SQ SCH (20:51)
[2021-11-14 23:45] VITALS: BP 149/59
[2021-11-15 05:50] VITALS: BP 143/73
[2021-11-15] MEDS: INSULIN LISPRO 100 UNITS/ML SQ PRN ×4 (06:00→20:06)
[2021-11-15] MEDS: CALCIUM CARBONATE 500 MG CHEWABLE TABLET CHEW SCH ×4 (06:01→20:04)
[2021-11-15 07:21] VITALS: BP 151/69
[2021-11-15] MEDS: CALCIUM ACETATE 667 MG CAPSULE PO SCH ×3 (08:28→17:45)
[2021-11-15] MEDS: AmLODIPine BESYLATE 10 MG TABLET PO SCH (08:29)
[2021-11-15] MEDS: VITAMIN B COMP/VIT C/FOLIC ACID CAPSULE PO SCH (08:29)
[2021-11-15] MEDS: CALCITRIOL 1 MCG/ML AMP IVP SCH (08:29)
[2021-11-15] MEDS: PANTOPRAZOLE SODIUM 40 MG/VIAL IVP SCH (08:29)
[2021-11-15] MEDS: FUROSEMIDE 40 MG/4 ML VIAL IVP SCH ×2 (08:29→20:05)
[2021-11-15] MEDS: DOCUSATE SODIUM 100 MG CAPSULE PO SCH ×3 (08:29→20:13)
[2021-11-15 09:36] LABS: GLUCOMETER DEV NAME(LOC) 5N.1C; GLUCOSE,POINT OF CARE 159 MG/DL (70-110)
[2021-11-15 11:32] VITALS: BP 146/76
[2021-11-15 16:08] VITALS: BP 130/68
[2021-11-15 20:00] VITALS: BP 165/81
[2021-11-15] MEDS: INSULIN GLARGINE,HUM.REC.ANLOG 100 UNITS/ML SQ SCH (21:00)
[2021-11-16] VITALS (15 sets, daily range): BP systolic 140–165; BP diastolic 58–84
[2021-11-16] MEDS: CALCIUM CARBONATE 500 MG CHEWABLE TABLET CHEW SCH ×4 (06:38→20:09)
[2021-11-16] MEDS: FUROSEMIDE 40 MG/4 ML VIAL IVP SCH ×2 (08:05→20:10)
[2021-11-16] MEDS: CALCIUM ACETATE 667 MG CAPSULE PO SCH ×3 (08:05→17:18)
[2021-11-16] MEDS: AmLODIPine BESYLATE 10 MG TABLET PO SCH (08:05)
[2021-11-16] MEDS: DOCUSATE SODIUM 100 MG CAPSULE PO SCH ×3 (08:05→20:19)
[2021-11-16] MEDS: CALCITRIOL 1 MCG/ML AMP IVP SCH (08:05)
[2021-11-16] MEDS: PANTOPRAZOLE SODIUM 40 MG/VIAL IVP SCH (08:06)
[2021-11-16] MEDS: VITAMIN B COMP/VIT C/FOLIC ACID CAPSULE PO SCH (08:06)
[2021-11-16 08:12] LABS: BASOPHILS % (AUTO) 0.2 % (0.0-2.0); HEMATOCRIT 26.1 % (41-53); HEMOGLOBIN 8.7 g/dL (13.5-17.5); LYMPHOCYTES % (AUTO) 15.5 % (22.0-44.0); MEAN CORPUSCULAR HEMOGLOBIN 29.7 pg (26.0-34.0); MEAN CORPUSCULAR HGB CONC 33.3 G/dL (31.0-37.0); MEAN CORPUSCULAR VOLUME 89 fL (80-100); MONOCYTES % (AUTO) 7.5 % (2.0-9.0); NEUTROPHILS # (AUTO) 7.4 K/uL (1.8-7.7); NEUTROPHILS % (AUTO) 57.5 % (40.0-70.0); PLATELET COUNT (AUTO) 208 K/uL (150-450); RED BLOOD CELL COUNT(AUTO) 2.93 MIL/uL (4.50-5.90); RED CELL DISTRIBUTION WIDTH 16.2 % (11.5-14.5)
[2021-11-16] MEDS: EPOETIN ALFA 10,000 UNITS/ML 2 ML VIAL SQ SCH (08:14)
[2021-11-16 08:16] LABS: EOSINOPHILS % (AUTO) 19.3 % (1.0-6.0)
[2021-11-16 08:34] LABS: CALCIUM, TOTAL 8.5 mg/dL (8.8-10.5); CREATININE 7.58 mg/dL (0.60-1.30); MAGNESIUM 1.4 mg/dL (1.80-2.40); PHOSPHORUS 2.2 mg/dL (2.5-4.9); POTASSIUM 3.8 mmol/L (3.5-5.1)
[2021-11-16] MEDS ORDERED: PHOSLOC PO (12:59)
[2021-11-16] MEDS ORDERED: INSLAN SQ (12:59)
[2021-11-16] MEDS ORDERED: AMLO-258 PO (12:59)
[2021-11-16] MEDS: INSULIN LISPRO 100 UNITS/ML SQ PRN ×3 (14:07→20:12)
[2021-11-16] MEDS ORDERED: HEPARIN SODIUM,PORCINE 1,000 UNITS/ML VIAL IVP ONE (16:46)
[2021-11-16] MEDS: INSULIN GLARGINE,HUM.REC.ANLOG 100 UNITS/ML SQ SCH (20:12)
[2021-11-17] VITALS (13 sets, daily range): BP systolic 137–172; BP diastolic 58–86
[2021-11-17] MEDS: CALCIUM CARBONATE 500 MG CHEWABLE TABLET CHEW SCH ×4 (06:40→21:14)
[2021-11-17] MEDS: VITAMIN B COMP/VIT C/FOLIC ACID CAPSULE PO SCH (08:18)
[2021-11-17] MEDS: PANTOPRAZOLE SODIUM 40 MG/VIAL IVP SCH (08:18)
[2021-11-17] MEDS: CALCIUM ACETATE 667 MG CAPSULE PO SCH ×3 (08:18→18:10)
[2021-11-17] MEDS: AmLODIPine BESYLATE 10 MG TABLET PO SCH (08:19)
[2021-11-17] MEDS: FUROSEMIDE 40 MG/4 ML VIAL IVP SCH ×2 (08:19→21:14)
[2021-11-17] MEDS: CALCITRIOL 1 MCG/ML AMP IVP SCH (08:20)
[2021-11-17] MEDS: DOCUSATE SODIUM 100 MG CAPSULE PO SCH ×3 (08:21→21:14)
[2021-11-17] MEDS ORDERED: HEPARIN SODIUM,PORCINE 1,000 UNITS/ML VIAL IVP ONE (12:00)
[2021-11-17] MEDS: INSULIN LISPRO 100 UNITS/ML SQ PRN (12:24)
[2021-11-17] MEDS: INSULIN GLARGINE,HUM.REC.ANLOG 100 UNITS/ML SQ SCH (21:00)
[2021-11-17] MEDS ORDERED: HEPARIN SODIUM,PORCINE 1,000 UNITS/ML VIAL IVCATH ONE ×2 (21:00)
[2021-11-18 05:01] VITALS: BP 134/64
[2021-11-18] MEDS: CALCIUM CARBONATE 500 MG CHEWABLE TABLET CHEW SCH ×4 (05:59→20:54)
[2021-11-18 08:13] VITALS: BP 161/70
[2021-11-18] MEDS: PANTOPRAZOLE SODIUM 40 MG/VIAL IVP SCH (08:53)
[2021-11-18] MEDS: CALCITRIOL 1 MCG/ML AMP IVP SCH (08:53)
[2021-11-18] MEDS: CALCIUM ACETATE 667 MG CAPSULE PO SCH ×3 (08:53→17:26)
[2021-11-18] MEDS: FUROSEMIDE 40 MG/4 ML VIAL IVP SCH ×2 (08:53→20:54)
[2021-11-18] MEDS: VITAMIN B COMP/VIT C/FOLIC ACID CAPSULE PO SCH (08:54)
[2021-11-18] MEDS: AmLODIPine BESYLATE 10 MG TABLET PO SCH (08:54)
[2021-11-18] MEDS: DOCUSATE SODIUM 100 MG CAPSULE PO SCH ×2 (08:54→20:57)
[2021-11-18] MEDS ORDERED: EPOETIN ALFA 10,000 UNITS/ML VIAL SQ SCH (09:00)
[2021-11-18 11:56] VITALS: BP 149/68
[2021-11-18] MEDS: INSULIN LISPRO 100 UNITS/ML SQ PRN ×2 (12:20→20:57)
[2021-11-18 15:28] VITALS: BP 153/70
[2021-11-18 20:37] VITALS: BP 158/86
[2021-11-18] MEDS: INSULIN GLARGINE,HUM.REC.ANLOG 100 UNITS/ML SQ SCH (20:56)
[2021-11-19] VITALS (13 sets, daily range): BP systolic 143–158; BP diastolic 66–92
[2021-11-19 05:16] LABS: BASOPHILS % (AUTO) 0.3 % (0.0-2.0); HEMATOCRIT 23.7 % (41-53); HEMOGLOBIN 7.5 g/dL (13.5-17.5); LYMPHOCYTES # (AUTO) 1.4 K/uL (1.0-4.8); LYMPHOCYTES % (AUTO) 11.7 % (22.0-44.0); MEAN CORPUSCULAR HGB CONC 31.6 G/dL (31.0-37.0); MEAN CORPUSCULAR VOLUME 92 fL (80-100); MONOCYTES % (AUTO) 8.2 % (2.0-9.0); NEUTROPHILS # (AUTO) 7.3 K/uL (1.8-7.7); PLATELET COUNT (AUTO) 186 K/uL (150-450); RED BLOOD CELL COUNT(AUTO) 2.59 MIL/uL (4.50-5.90); RED CELL DISTRIBUTION WIDTH 17.9 % (11.5-14.5)
[2021-11-19 05:21] LABS: EOSINOPHILS % (AUTO) 19.8 % (1.0-6.0)
[2021-11-19 05:34] LABS: CALCIUM, TOTAL 8.6 mg/dL (8.8-10.5); CREATININE 6.16 mg/dL (0.60-1.30); MAGNESIUM 1.6 mg/dL (1.80-2.40); PHOSPHORUS 2.3 mg/dL (2.5-4.9); POTASSIUM 3.9 mmol/L (3.5-5.1)
[2021-11-19] MEDS: CALCIUM CARBONATE 500 MG CHEWABLE TABLET CHEW SCH ×3 (05:49→17:16)
[2021-11-19] MEDS: PANTOPRAZOLE SODIUM 40 MG/VIAL IVP SCH (08:43)
[2021-11-19] MEDS: CALCITRIOL 1 MCG/ML AMP IVP SCH (08:43)
[2021-11-19] MEDS: DOCUSATE SODIUM 100 MG CAPSULE PO SCH (08:43)
[2021-11-19] MEDS: AmLODIPine BESYLATE 10 MG TABLET PO SCH (08:43)
[2021-11-19] MEDS: FUROSEMIDE 40 MG/4 ML VIAL IVP SCH (08:43)
[2021-11-19] MEDS: VITAMIN B COMP/VIT C/FOLIC ACID CAPSULE PO SCH (08:43)
[2021-11-19] MEDS: INSULIN LISPRO 100 UNITS/ML SQ PRN (12:09)
[2021-11-19] MEDS ORDERED: HEPARIN SODIUM,PORCINE 1,000 UNITS/ML VIAL IVP ONE (18:27)
[2021-11-20] MEDS ORDERED: EPOETIN ALFA 10,000 UNITS/ML 2 ML VIAL SQ SCH (09:00)
[2021-11-21 12:46] LABS: GLUCOMETER DEV NAME(LOC) 5S.1B; GLUCOSE,POINT OF CARE 229 MG/DL (70-110)
[2021-11-21 12:47] LABS: GLUCOMETER DEV NAME(LOC) 5S.1B; GLUCOSE,POINT OF CARE 133 MG/DL (70-110)
[2021-11-21 12:51] LABS: GLUCOMETER DEV NAME(LOC) 5S.1B; GLUCOSE,POINT OF CARE 172 MG/DL (70-110)
[2021-11-21 12:51] LABS: GLUCOMETER DEV NAME(LOC) 5S.1B; GLUCOSE,POINT OF CARE 196 MG/DL (70-110)
[2021-11-21 12:52] LABS: GLUCOMETER DEV NAME(LOC) 5S.1B; GLUCOSE,POINT OF CARE 70 MG/DL (70-110)
[2021-11-21 12:52] LABS: GLUCOMETER DEV NAME(LOC) 5S.1B; GLUCOSE,POINT OF CARE 304 MG/DL (70-110)
[2021-11-21 12:52] LABS: GLUCOMETER DEV NAME(LOC) 5S.1B; GLUCOSE,POINT OF CARE 157 MG/DL (70-110)
[2021-11-21 12:53] LABS: GLUCOMETER DEV NAME(LOC) 5S.1B; GLUCOSE,POINT OF CARE 154 MG/DL (70-110)
[2021-11-21 12:53] LABS: GLUCOMETER DEV NAME(LOC) 5S.1B; GLUCOSE,POINT OF CARE 187 MG/DL (70-110)
[2021-11-21 12:53] LABS: GLUCOMETER DEV NAME(LOC) 5S.1B; GLUCOSE,POINT OF CARE 155 MG/DL (70-110)
[2021-11-21 12:53] LABS: GLUCOMETER DEV NAME(LOC) 5S.1B; GLUCOSE,POINT OF CARE 99 MG/DL (70-110)
[2021-11-21 17:58] LABS: GLUCOMETER DEV NAME(LOC) 5S.2B; GLUCOSE,POINT OF CARE 196 MG/DL (70-110)
[2021-11-21 17:58] LABS: GLUCOMETER DEV NAME(LOC) 5S.2B; GLUCOSE,POINT OF CARE 186 MG/DL (70-110)
[2021-11-21 17:58] LABS: GLUCOMETER DEV NAME(LOC) 5S.2B; GLUCOSE,POINT OF CARE 177 MG/DL (70-110)
[2021-11-21 17:59] LABS: GLUCOMETER DEV NAME(LOC) 5S.2B; GLUCOSE,POINT OF CARE 146 MG/DL (70-110)
[2021-11-21 17:59] LABS: GLUCOMETER DEV NAME(LOC) 5S.2B; GLUCOSE,POINT OF CARE 137 MG/DL (70-110)
[2021-11-21 17:59] LABS: GLUCOMETER DEV NAME(LOC) 5S.2B; GLUCOSE,POINT OF CARE 214 MG/DL (70-110)
[2021-11-21 17:59] LABS: GLUCOMETER DEV NAME(LOC) 5S.2B; GLUCOSE,POINT OF CARE 121 MG/DL (70-110)
[2021-11-21 17:59] LABS: GLUCOMETER DEV NAME(LOC) 5S.2B; GLUCOSE,POINT OF CARE 161 MG/DL (70-110)
[2021-11-21 18:00] LABS: GLUCOMETER DEV NAME(LOC) 5S.2B; GLUCOSE,POINT OF CARE 127 MG/DL (70-110)
[2021-11-21 18:00] LABS: GLUCOMETER DEV NAME(LOC) 5S.2B; GLUCOSE,POINT OF CARE 182 MG/DL (70-110)
[2021-11-21 18:00] LABS: GLUCOMETER DEV NAME(LOC) 5N.3; GLUCOSE,POINT OF CARE 129 MG/DL (70-110)
== END 2021-11-19 19:20 | DRG 264 ==
LOC: EMS 01:08 → 5S 01:40
PROVIDERS: ADMIT Hospitalist; ATTEND Hospitalist
PROC: 5A1D70Z Performance of Urinary Filtration, Intermittent, Less than 6 Hours Per Day (ICD-10-PCS; principal; 2021-11-10)
PROC: 5A1D70Z Performance of Urinary Filtration, Intermittent, Less than 6 Hours Per Day (ICD-10-PCS; 2021-11-11)
PROC: 0JH63XZ Insertion of Tunneled Vascular Access Device into Chest Subcutaneous Tissue and Fascia, Percutaneous Approach (ICD-10-PCS; 2021-11-11)
PROC: B548ZZA Ultrasonography of Superior Vena Cava, Guidance (ICD-10-PCS; 2021-11-11)
PROC: B5181ZA Fluoroscopy of Superior Vena Cava using Low Osmolar Contrast, Guidance (ICD-10-PCS; 2021-11-11)
PROC: 02HV33Z Insertion of Infusion Device into Superior Vena Cava, Percutaneous Approach (ICD-10-PCS; 2021-11-11)
PROC: 5A1D70Z Performance of Urinary Filtration, Intermittent, Less than 6 Hours Per Day (ICD-10-PCS; 2021-11-12)
PROC: 031C0ZF Bypass Left Radial Artery to Lower Arm Vein, Open Approach (ICD-10-PCS; 2021-11-13)
PROC: 5A1D70Z Performance of Urinary Filtration, Intermittent, Less than 6 Hours Per Day (ICD-10-PCS; 2021-11-13)
PROC: 5A1D70Z Performance of Urinary Filtration, Intermittent, Less than 6 Hours Per Day (ICD-10-PCS; 2021-11-16)
PROC: 5A1D70Z Performance of Urinary Filtration, Intermittent, Less than 6 Hours Per Day (ICD-10-PCS; 2021-11-19)
DX: I13.2 Hypertensive heart and chronic kidney disease with heart failure and with stage 5 chronic kidney disease, or end stage renal disease (principal); N18.6 End stage renal disease; I50.33 Acute on chronic diastolic (congestive) heart failure; N17.9 Acute kidney failure, unspecified; N25.81 Secondary hyperparathyroidism of renal origin; E03.9 Hypothyroidism, unspecified; D63.1 Anemia in chronic kidney disease; E78.00 Pure hypercholesterolemia, unspecified; Z20.822 Contact with and (suspected) exposure to COVID-19; E11.22 Type 2 diabetes mellitus with diabetic chronic kidney disease; E83.51 Hypocalcemia; E11.319 Type 2 diabetes mellitus with unspecified diabetic retinopathy without macular edema; F41.9 Anxiety disorder, unspecified; E11.65 Type 2 diabetes mellitus with hyperglycemia; E78.5 Hyperlipidemia, unspecified; E83.39 Other disorders of phosphorus metabolism; Z79.4 Long term (current) use of insulin; Z82.49 Family history of ischemic heart disease and other diseases of the circulatory system; Z83.3 Family history of diabetes mellitus
CPT/HCPCS: 36245; 36561; 71045; 76000; 76937; 80048; 80053; 82306; 82310; 82330; 82550; 82962; 83735; 83880; 83970; 84100; 84484; 85025; 85379; 85610; 85730; 87340; 90935; 93005; 93306; 93970; 94640; 97162; 99285; C9113; J0360; J0610; J0636; J0690; J0885; J1644; J1815; J1940; J2250; J2704; J3010; J3370; J3490; J7030; J7050; J7060; 36415-L1; 36415-TC; U0003; Z7610